=== PATIENT | male | born 1965 | race Caucasian/White ===

== ENCOUNTER 2016-11-26 05:20 | Emergency (ER) ==
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
[2016-11-26 07:14] VITALS: BP 98/56
== END 2016-11-26 06:42 | disposition home or self-care (01) ==
LOC: ED 05:20
DX: G47.00 Insomnia, unspecified (principal); R53.1 Weakness; E78.5 Hyperlipidemia, unspecified; E07.9 Disorder of thyroid, unspecified; Z79.899 Other long term (current) drug therapy

== ENCOUNTER 2019-04-08 07:04 | Inpatient (IN) ==
[2019-04-08 08:06] LABS: ALBUMIN 4.5 g/dL (3.5-5.0); CALCIUM 5.6 mg/dL (8.8-10.2); CREATININE 1.4 mg/dL (0.7-1.2); MAGNESIUM 1.9 mg/dL (1.5-2.7); POTASSIUM 2.5 mmol/L (3.5-5.1); TOTAL BILIRUBIN 0.6 mg/dL (0.20-1.00); TOTAL PROTEIN 6.9 g/dL (6.3-8.3)
[2019-04-08 08:23] LABS: BILIRUBIN URINE NEGATIVE (NEGATIVE); BLOOD URINE 1+ (NEGATIVE); GLUCOSE URINE NEGATIVE (NEGATIVE); KETONE URINE NEGATIVE (NEGATIVE); LEUKOCYTES URINE TRACE (NEGATIVE); NITRITE URINE POSITIVE (NEGATIVE); PROTEIN URINE TRACE mg/dL (NEGATIVE); UROBILINOGEN URINE NORMAL
[2019-04-08 08:24] LABS: CLARITY CLEAR (CLEAR); COLOR YELLOW
[2019-04-08 08:29] LABS: URINE EPITHELIAL CELLS <10 /HPF (<10); URINE RBC <10 /HPF (<10); URINE SOURCE CLEAN CATCH
[2019-04-08] MEDS ORDERED: POTASSIUM CHLORIDE 40 MEQ in NS 1,000 ML IV ONE (09:01)
[2019-04-08] MEDS ORDERED: CALCIUM GLUCONATE 1 GM in NS 50 ML IV ONE (09:02)
--- NOTE | 2019-04-08 09:09 | PROVIDER DOCUMENTATION ---
HPI-Abdominal Pain/GI Problem - General Chief Complaint: Nausea Stated Complaint: ABD PAIN Time Seen by Provider: 04/08/19 07:27 Source: patient Allergies/Adverse Reactions: Patient Allergies Allergy/AdvReac Type Severity Reaction Status Date / Time No Known Allergies Allergy Verified 03/31/19 08:20 Home Medications: Home Medication List Medication Instructions Recorded Confirmed Last Taken Type Metoclopramide [Reglan] 10 mg PO Q6HR PRN #20 tab 03/31/19 Unknown Rx - History of Present Illness-ABD Nature of Presenting Problems: 53 y/o WM c/o nausea and calf cramping for the past 2 days. Pt adds that he has had this problem in the past before and that his potassium is usually low. Abdominal Pain Onset Location: denies: RUQ, LUQ, RLQ, LLQ, epigastric, periumbilical, suprapubic, generalized abdomen, flank, unknown, other Pain Radiation: denies: no radiation, RUQ, LUQ, RLQ, LLQ, epigastric, periumbilical, flank, groin, scapula, shoulder, chest, back, other Quality of Pain: denies: none, aching, burning, cramping, dull, fullness, indigestion, pressure, sharp, stabbing, tearing, throbbing, tightness, other Severity in ED: reports: mild Onset/Duration: reports: 2 days ago Timing: reports: still present Activities at Onset: reports: light activity Exposure to sick contacts?: No Modifying Factors: improves with: nothing Associated Symptoms: reports: nausea Last BM: 24 hours ago Dark Stools Present?: reports: none noticed Rectal Bleeding: reports: none # of Diarrhea Episodes: 0 Rectal Pain: reports: none # of Vomiting Episodes: 0 Emesis Description: reports: none Bruising or Bleeding Gums?: No Similar Symptoms Previously?: No Recently seen or treated by another doctor?: No Review of Systems - Adult - REVIEW OF SYSTEMS - ADULT Constitutional: reports: no symptoms reported, see HPI Eyes: reports: no symptoms reported, see HPI Ears, Nose, Mouth & Throat: reports: no symptoms reported, see HPI Cardiovascular: reports: no symptoms reported, see HPI Respiratory: reports: no symptoms reported, see HPI Gastrointestinal: reports: see HPI, nausea Genitourinary: reports: no symptoms reported, see HPI Musculoskeletal: reports: see HPI, other (mild muscle cramping) Integumentary: reports: no symptoms reported, see HPI Neurological: reports: no symptoms reported, see HPI Psychiatric: reports: no symptoms reported, see HPI Endocrine: reports: no symptoms reported, see HPI Hematologic/Lymphatic: reports: no symptoms reported, see HPI Allergic/Immunologic: reports: no symptoms reported, see HPI All Other Systems: Reviewed and Negative Past History - Adult - PAST MEDICAL HISTORY-ADULT Review of Records: reports: Nursing Assessment Review, Medications Reviewed, Social history reviewed & non-contributory. Major Childhood Illnesses: reports: denies history Cardiovascular: reports: HTN Respiratory: reports: denies history Gastrointestinal: reports: IBS Obstetrical/Gynecological: reports: denies history Genitourinary: reports: denies history Musculoskeletal: reports: denies history Neurological: reports: Seizures/Epilepsy, other (calcium buildup in brain) Psychiatric: reports: anxiety Endocrine/Immune: reports: thyroid disorder Other Conditions: reports: cataract/glaucoma, other (chronic hypocalcemia, hypokalemia, hypomagnesmia) Additional History: low potassium, low calcium - PRIOR SURGERIES/PROCEDURES Surgical/Procedure History: reports: back/neck, other (cataract removal) - PRIOR HOSPITALIZATIONS Prior Hospitalizations: reports: for other non-related - IMMUNIZATION STATUS Childhood Immunizations: See Nurse Assessment Flu Vaccine: See Nurse Assessment - FAMILY HISTORY Family History: reviewed, not pertinent Physical Exam-General - PHYSICAL EXAM-ADULT Initial Vital Signs Reviewed: Yes - CONSTITUTIONAL General Appearance: appears well, alert, no apparent distress - EYES Eyes: PERRL/EOMI - HEAD, EARS, NOSE, MOUTH & THROAT HENMT: normocephalic/atraumatic, moist mucous membranes - NECK Neck: non-tender, full range of motion, supple, normal inspection - RESPIRATORY Respiratory: chest non-tender, lungs clear, normal breath sounds, no pleuratic chest pain, no respiratory distress, no accessory muscle use - CARDIOVASCULAR Cardiovascular: normal peripheral pulses, regular rate, rhythm, no edema, no gallop, no JVD, no murmur - GASTROINTESTINAL (ABDOMEN) Abdominal Exam: normal bowel sounds, non tender, soft, no organomegaly, no pulsatile mass - LYMPHATIC Lymphatic: no adenopathy - MUSCULOSKELETAL Back Exam: normal inspection, no CVA tenderness, no vertebral tenderness Extremity: normal range of motion, non-tender, normal gait, normal inspection, no pedal edema, no calf tenderness, normal capillary refill - SKIN Integumentary: normal color, normal turgor - NEUROLOGIC 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 as 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, grossly normal, no motor/sensory deficits - PSYCHIATRIC Psych/Mental Status: normal mood/affect, normal thought content, normal thought process, oriented x 3 Progress - PLAN OF CARE/RESULTS Progress/Plan/Lab Results: Vital Signs - 8 hr 04/08/19 07:07 Temperature 98 F Pulse Rate 80 Respiratory Rate 18 Blood Pressure 104/68 O2 Sat by Pulse Oximetry 98 Laboratory Results - last 24 hr 04/08/19 04/08/19 07:18 08:07 Sodium 133 L Potassium 2.5 L* Chloride 100 Carbon Dioxide 19 L Anion Gap 14 BUN 13 Creatinine 1.4 H Estimated GFR/1.73 m2 53 BUN/Creatinine Ratio 9 Glucose 105 H Calculated Osmolality 267 Calcium 5.6 L* Magnesium 1.9 Total Bilirubin 0.60 AST 22 ALT 8 L Alkaline Phosphatase 147 H Total Protein 6.9 Albumin 4.5 Globulin 2.0 Albumin/Globulin Ratio 2.0 Urine Source CLEAN CATCH Urine Color YELLOW Urine Clarity CLEAR Urine pH 7.0 Ur Specific [place] 1.000 Urine Protein TRACE A Urine Ketones NEGATIVE Urine Blood 1+ A Urine Nitrite POSITIVE A Urine Bilirubin NEGATIVE Urine Urobilinogen NORMAL Urine Microscopic RBC <10 Urine WBC TRACE A Ur Epithelial Cells <10 Urine Glucose NEGATIVE Orders Category Date Time Status CBC WITH DIFF [HEME] Stat Lab 04/08/19 07:13 Ordered COMPREHENSIVE METABOLIC PANEL [CHEM] Stat Lab 04/08/19 07:18 Completed MAGNESIUM [CHEM] Stat Lab 04/08/19 07:18 Completed ua [URINALYSIS PL W/POSS RFLX CULT] [URINALYSIS] Stat Lab 04/08/19 08:07 Completed 0.9% Sodium Chloride Inj [Ns] 1,000 ml Med 04/08/19 09:01 Active Potassium Chloride 40 meq IV 125 mls/hr Calcium Gluconate 1 gm Med 04/08/19 09:02 Active 0.9% Sodium Chloride Inj [Ns] 50 ml IV NOW Result Diagrams: 04/08/19 07:18 - CONSULTS/PCP/HOSPITALIST Notification #1 *Consult/PCP/Hospitalist*: Dr Suarez Time Discussed: 09:00 Consult Disposition: Will see in ED, Admit Departure - Departure Date of Disposition Decision: 04/08/19 Time of Disposition Decision: 09:13 DIAGNOSIS: Hypocalcemia, Hypokalemia, Nausea, UTI (urinary tract infection) Disposition: HOME 01 Certified Medical Emergency: Emergent Condition: Fair Referrals and Follow-Ups: Joseph Narayan Jr, MD [Primary Care Provider] - - Critical Care Note This patient required my direct & personal management of CC.: Yes Attestation - Physician/ RUPA Attestation Patient care was provided by Advanced Practice Provider:: No The physician spent face to face time with patient:: Yes Advanced Practice Provider documentation review:: Supervising physician onsite and consulted in the evaluation and care of this patient. The physician did have a face to face encounter with the patient.
[2019-04-08] MEDS ORDERED: NS + KCL 40 MEQ 1,000 ML IV ONE (09:15)
[2019-04-08] MEDS ORDERED: LEVAQUIN 500 MG/D5W 500 MG/100 ML IVPB IV ONE (09:15)
[2019-04-08 11:13] LABS: BASO# 0.03 X1000 (0.0-0.2); BASO% 0.6 % (0.0-0.8); EOS# 0.09 X1000 (0.0-0.7); EOS% 1.7 % (0.0-10.0); HEMATOCRIT 33.4 % (42.0-52.0); HEMOGLOBIN 11.9 g/dL (14.0-18.0); LYMPH# 1.13 X1000 (1.2-3.4); LYMPH% 21.7 % (20.5-51.1); MCH 31.2 PG (27-31); MCHC 35.6 g/dL (33-37); MCV 87.7 FL (81-99); MONO# 0.45 X1000 (0.11-0.59); MONO% 8.7 % (1.7-9.3); MPV 11.9 FL (7.4-10.4); NEUT% 67.3 % (42.2-75.2); PLT 191 X1000 (130-400); RBC 3.81 XMIL (4.7-6.1); RDW 13.1 % (11.5-14.5)
--- NOTE | 2019-04-08 12:28 | EKG Report ---
Test Performed on : 04/08/2019 11:00:44 AM Test Reason : assess, electrolyte imbalances Blood Pressure : / mmHG Vent. Rate : 064 BPM Atrial Rate : 064 BPM P-R Int : 156 ms QRS Dur : 120 ms QT Int : 460 ms P-R-T Axes : 068 001 047 degrees QTc Int : 474 ms Normal sinus rhythm. Nonspecific intraventricular conduction delay Borderline ECG When compared with ECG of 12-APR-2018 00:51, QRS duration has increased T wave inversion no longer evident in Inferior leads Unconfirmed Result
[2019-04-08 14:35] LABS: CALCIUM 5.6 mg/dL (8.8-10.2); POTASSIUM 2.5 mmol/L (3.5-5.1)
[2019-04-08] MEDS ORDERED: CITRACAL + D PO ONE (15:02)
[2019-04-08] MEDS: POTASSIUM CHLORIDE 20 MEQ/SWI 20 MEQ/100 ML IVPB IV SCH ×2 (15:29→18:49)
--- NOTE | 2019-04-08 17:09 | HISTORY AND PHYSICAL ---
PRIMARY CARE PROVIDER: Dr. Joseph Narayan. CHIEF COMPLAINT: Nausea. HISTORY OF PRESENT ILLNESS: Mr. Garrison is a 53-year-old gentleman who carries a past medical history of hypocalcemia, hypokalemia, hypothyroidism, hyperlipidemia, internal bowel syndrome, seizures, and hypertension. He came to the ED stating that he woke up feeling nauseated. He has been out of his potassium for over a week because he has not picked any new medicines. He denied any muscle aches, cramping, headache, fever, chill, cough, shortness of breath, chest pain, palpitations, vomiting, diarrhea or constipation. Workup in the ED revealed mild hyponatremia, hypokalemia with potassium of 2.5, calcium of 5.6 and magnesium of 1.9 and nitrate positive urinalysis for which he was given a dose of IV Levaquin. We will continue to follow his culture. He was also treated with calcium gluconate IV and normal saline with potassium. REVIEW OF SYSTEMS: Twelve-point review of systems is completely negative except for those mentioned in HPI. PAST MEDICAL HISTORY: 1. IBS. 2. Hypertension. 3. Seizures for which he takes no medication. 4. Hyperlipidemia, no medication. 5. Hypokalemia. He does take potassium supplementation for this. However, he has been off of it for over 1 week. 6. Hypocalcemia. He does take a calcium supplement. 7. Glaucoma and cataracts. 8. Hypothyroidism, which he takes no medications for. PAST SURGICAL HISTORY: Cataract surgery. FAMILY HISTORY: Noncontributory. SOCIAL HISTORY: He lives here in [place]. No alcohol, tobacco, or illicit drug use. He is not . He has no children. He does have a stepbrother that lives in [place]. He works at [employer]. ALLERGIES: No known drug allergies. HOME MEDICATIONS: Have not been verified. PHYSICAL EXAMINATION: VITAL SIGNS: Temperature is 97.8 degrees, heart rate 63, respirations 12, blood pressure 107/77, O2 is 98% on room air. GENERAL: Mr. Garrison is a pleasant 53-year-old male who is lying on the bed in no acute distress. HEENT: Atraumatic, normocephalic. PERRL. NECK: Supple. Trachea midline. CARDIOVASCULAR: S1, S2 appreciated. No murmurs, gallops, rubs noted. RESPIRATORY: Lung sounds clear bilaterally. GI: Soft, nontender, nondistended. Positive bowel sounds in all 4 quadrants. SKIN: Appears to be warm, dry, and intact. NEUROLOGIC: The patient is awake, alert, and oriented, follows commands. Moves all extremities. Answers all questions appropriately. He does seem to have some sort of cognitive dysfunction, unsure exactly what it is. DIAGNOSTIC DATA: None. LABORATORY DATA: White count 5, hemoglobin and hematocrit 11 and 33, platelet count is 191,000. Sodium 133, potassium 2.5, BUN 13, creatinine 1.4, blood glucose is 105, calcium 5.6, mag 1.9, alkaline phosphatase is 147. Urinalysis is nitrate positive. ASSESSMENT AND PLAN: 1. Hypokalemia. We will continue with supplementation. Monitor him on telemetry. Check an EKG. Recheck his a.m. labs. 2. Mild hyponatremia. We will continue with IV fluids. 3. Probable acute kidney injury on chronic kidney disease. We will continue with IV hydration. Recheck his labs in the morning. 4. Hypocalcemia. We will continue with supplementation. Recheck his a.m. labs. 5. Nitrate positive urinalysis. The patient reports no urinary symptoms. He was treated with 1 dose of IV Levaquin in the ED. We will follow his urine culture as he has no urinary symptoms. No white count. 6. Hypertension on no home medications, currently stable. 7. Seizure disorder on no home medications. 8. Hypothyroidism. We will check a TSH, PTH. Patient takes no medications for this. 9. Irritable bowel syndrome. Aware. 10. Hyperlipidemia. Patient does not take a statin. 11. Further recommendation to follow physician evaluation, laboratory and diagnostic data. Dictated by BENI Paige for Dick Suarez MD cc: MD Joseph Dunaway MD [facility] SYSTEMJody
[2019-04-08] MEDS ORDERED: NS + KCL 20 MEQ 1,000 ML IV ONE (17:30)
[2019-04-08] MEDS ORDERED: TUMS PO SCH (21:00)
--- NOTE | 2019-04-08 22:48 | HISTORY AND PHYSICAL ---
ADDENDUM: Patient seen and examined by myself. Full note dictated and discussed with nurse practitioner. Patient presented to the hospital with nausea, subsequently diagnosed with significant hypokalemia with a potassium of 2.5. He was given potassium in the ER. His potassium level is still low. We will again replace and recheck. We will also follow his calcium levels which are low. cc: Dick Suarez MD
[2019-04-09 05:53] LABS: HEMATOCRIT 33.8 % (42.0-52.0); HEMOGLOBIN 11.9 g/dL (14.0-18.0); MCH 30.9 PG (27-31); MCHC 35.2 g/dL (33-37); MCV 87.8 FL (81-99); MPV 11.2 FL (7.4-10.4); RBC 3.85 XMIL (4.7-6.1); RDW 13.3 % (11.5-14.5); WBC 4.08 X1000 (4.8-10.8)
[2019-04-09 06:16] LABS: AGAP 12; ALBUMIN 4.2 g/dL (3.5-5.0); ALKALINE PHOSPHATASE 139 U/L (32-122); BUN 13 mg/dL (8-22); CHLORIDE 108 mmol/L (98-107); COSMO 281; CREATININE 1.2 mg/dL (0.7-1.2); ESTIMATED GFR > 60; GLUCOSE 93 mg/dL (70-104); GOT 20 U/L (10-34); GPT 7 U/L (10-44); MAGNESIUM 1.9 mg/dL (1.5-2.7); PHOSPHORUS 2.9 mg/dL (2.7-4.5); POTASSIUM 3.1 mmol/L (3.5-5.1); SODIUM 141 mmol/L (136-145); TCO2 21 mmol/L (25-35); TOTAL PROTEIN 6.6 g/dL (6.3-8.3)
[2019-04-09 06:19] LABS: CALCIUM 5.8 mg/dL (8.8-10.2)
[2019-04-09] MEDS ORDERED: KLOR-CON PO ONE (07:44)
[2019-04-09 08:21] LABS: PTH INTACT 147 pg/mL (16-65)
[2019-04-09] MEDS: CALTRATE 600 PO SCH ×3 (09:27→17:21)
[2019-04-09] MEDS: CITRACAL + D PO SCH (09:27)
[2019-04-09] MEDS: SYNTHROID PO SCH (09:27)
[2019-04-10] MEDS: SYNTHROID PO SCH (06:31)
[2019-04-10 07:06] LABS: HEMATOCRIT 37.2 % (42.0-52.0); HEMOGLOBIN 12.9 g/dL (14.0-18.0); MCH 30.6 PG (27-31); MCHC 34.7 g/dL (33-37); MCV 88.2 FL (81-99); MPV 11.4 FL (7.4-10.4); RBC 4.22 XMIL (4.7-6.1); RDW 13.5 % (11.5-14.5); WBC 4.64 X1000 (4.8-10.8)
[2019-04-10 07:52] VITALS: BP 107/73
[2019-04-10 08:17] LABS: AGAP 13; ALBUMIN 4.2 g/dL (3.5-5.0); ALKALINE PHOSPHATASE 143 U/L (32-122); BUN 14 mg/dL (8-22); CHLORIDE 107 mmol/L (98-107); COSMO 279; CREATININE 0.9 mg/dL (0.7-1.2); ESTIMATED GFR > 60; GLUCOSE 90 mg/dL (70-104); GOT 18 U/L (10-34); GPT 7 U/L (10-44); MAGNESIUM 1.8 mg/dL (1.5-2.7); POTASSIUM 3.2 mmol/L (3.5-5.1); SODIUM 140 mmol/L (136-145); TCO2 20 mmol/L (25-35); TOTAL PROTEIN 6.7 g/dL (6.3-8.3)
[2019-04-10] MEDS ORDERED: KLOR-CON PO ONE (08:41)
[2019-04-10] MEDS: CALTRATE 600 PO SCH (08:47)
[2019-04-10] MEDS: CITRACAL + D PO SCH (08:47)
--- NOTE | 2019-04-10 09:31 | PROGRESS NOTE ---
DATE: 04/09/2019 SUBJECTIVE: Patient notes his abdominal pain has improved, in fact, he ate a full breakfast. He denies any other complaints. PHYSICAL EXAMINATION: Vital Signs: Reviewed. Temperature 97.5 degrees, pulse 54, respiratory rate 18, BP 106/69. General: Patient is awake, alert. He is in no current distress. He is lying in bed. He has had a full breakfast. HEENT: Normocephalic. Neck: Supple. Cardiovascular: Regular rate. No murmurs. Chest: Clear, nonlabored. Abdomen: Soft, nondistended. Extremities: Moves all extremities. ASSESSMENT: 1. Hypocalcemia. Calcium is still low at 5.8. 2. Hypokalemia, improving, but still low at 3.1. 3. Acute renal failure, improving. Currently creatinine is down to 1.2. 4. Hyponatremia, resolved. 5. Hypertension. 6. History of seizure disorder, currently not on any home medications. 7. Hypothyroidism. PLAN: Will continue patient in the hospital. Will follow. TSH is elevated at 19. We will increase Synthroid. Creatinine, potassium and calcium are all improving. Will continue IV fluids. Will follow and recheck laboratories in the morning. If they are stable, hopefully can discharge home. cc: Dick Suarez MD
[2019-04-11] MEDS ORDERED: KLOR-CON PO SCH (09:00)
--- NOTE | 2019-04-11 10:21 | DISCHARGE SUMMARY ---
ADMISSION DATE: 04/08/2019 DISCHARGE DATE: 04/10/2019 DISCHARGE DIAGNOSIS: 1. Hyponatremia, resolved. 2. Hypokalemia, improved. 3. Hypocalcemia, improved. 4. Acute on chronic renal failure stage 1, improved. 5. Hypothyroidism, currently on Synthroid. 6. History of seizure disorder. CONSULTATIONS: None. PROCEDURES: None. BRIEF HOSPITAL COURSE: The patient is a 53-year-old male who presented to the hospital with initially nausea. He was noted to have a low potassium, calcium, and sodium. His thyroid was noted to be elevated. Therefore, he was placed on potassium, calcium, and Synthroid. Thankfully over the next couple of days, his symptoms improved. Currently is eating and drinking without any difficulty, ambulating without any difficulty. His sodium is still low at 3.1, calcium is 7.2. He will continue potassium daily and calcium twice daily until he follows up outpatient with his primary care in the next week or two. Greater than 30 minutes was spent in total care. No changes made on his diet or activity otherwise. cc: Dick Suarez MD
== END 2019-04-10 10:35 | disposition home or self-care (01) | DRG 683 ==
LOC: P.ED 07:04 → P.MEDSURG 11:29
PROVIDERS: ATTEND Family Medicine
CPT/HCPCS: 80053; 81001; 82310; 83735; 83970; 84100; 84132; 84443; 85025; 85027; 87088; 93005; A9270; J0610; J1956; J3480; J7030